=== PATIENT | female | born 1995 ===

== ENCOUNTER 2025-01-22 16:45 | Emergency (ER) | payer MEDICAID, OTHER ==
[~2025-01-22] VITALS: Ht 175.3 cm; Wt 64.6 kg
[2025-01-22] MEDS: KETOROLAC TROMETH 60MG/2ML VIAL IM ONE (18:04)
[2025-01-22] MEDS: HYDROcodone-ACET 10/325MG TAB PO ONE (18:04)
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
[2025-01-22] MEDS ORDERED: IBUP-1455 PO (18:45)
[2025-01-22] MEDS ORDERED: ACET500T58 PO (18:45)
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
[2025-01-22 20:21] VITALS: BP 126/93; PULSE 62; RESP 18; TEMP 98.9; O2SAT 98
[2025-01-22] MEDS: HYDROmorphone HCL 2 MG/ML VL/or syr IM ONE (20:21)
== END 2025-01-22 20:28 | disposition home or self-care (01) ==
LOC: ER 16:45
DX: S16.1XXA Strain of muscle, fascia and tendon at neck level, initial encounter (principal); Z88.5 Allergy status to narcotic agent; V49.40XA Driver injured in collision with unspecified motor vehicles in traffic accident, initial encounter; Y93.I9 Activity, other involving external motion; Y92.488 Other paved roadways as the place of occurrence of the external cause; Y99.8 Other external cause status
CPT/HCPCS: 70450; 72125; 96372; 99285; J1171; J1885